=== PATIENT | female | born 1990 | race Caucasian/White ===

== ENCOUNTER 2021-05-26 08:10 | Outpatient (REF) | payer OTHER, SELFPAY ==
[2021-05-29 20:07] LABS: HPV mRNA E6/E7 rflx Not Detected (Not Detected)
== END 2021-05-26 08:11 | disposition home or self-care (01) ==
LOC: HO.LAB 08:10
PROVIDERS: PCP Internal Medicine Medical Oncology; Visit Provider Obstetrics & Gynecology
DX: Z01.411 Encounter for gynecological examination (general) (routine) with abnormal findings (principal); Z11.51 Encounter for screening for human papillomavirus (HPV); N90.89 Other specified noninflammatory disorders of vulva and perineum
CPT/HCPCS: 87624; 88142

== ENCOUNTER 2021-06-23 08:33 | Outpatient (REF) | payer OTHER, SELFPAY | END 2021-06-23 08:34 | disposition home or self-care (01) | LOC: HO.LAB 08:33 | PROVIDERS: PCP Internal Medicine Medical Oncology; Visit Provider Obstetrics & Gynecology | DX: N90.89 Other specified noninflammatory disorders of vulva and perineum (principal); R87.610 Atypical squamous cells of undetermined significance on cytologic smear of cervix (ASC-US) | CPT/HCPCS: 56605; 57454; 88305 ==

== ENCOUNTER → 2021-07-09 11:31 | Outpatient (BNVA) | payer OTHER, SELFPAY | PROVIDERS: Visit Provider Obstetrics & Gynecology ==

== ENCOUNTER 2022-05-31 08:55 | Outpatient (REF) | payer OTHER, SELFPAY ==
[2022-06-02 01:34] LABS: HPV mRNA E6/E7 rflx Not Detected (Not Detected)
== END 2022-05-31 08:56 | disposition home or self-care (01) ==
LOC: HO.LNP 08:55
PROVIDERS: Visit Provider Obstetrics & Gynecology
DX: Z01.419 Encounter for gynecological examination (general) (routine) without abnormal findings (principal); Z11.51 Encounter for screening for human papillomavirus (HPV); R87.610 Atypical squamous cells of undetermined significance on cytologic smear of cervix (ASC-US)
CPT/HCPCS: 87624; 88142

== ENCOUNTER 2022-05-31 08:58 | Outpatient (REF) | payer OTHER, SELFPAY ==
[2022-05-31 09:30] LABS: Hematocrit 39.2 % (37.0-47.0); Hemoglobin 12.8 g/dl (12.0-16.0); Mean Corpuscular HGB Conc 32.7 g/dl (31.0-35.0); Mean Corpuscular Hemoglobin 28.4 pg (27.0-33.0); Mean Corpuscular Volume 87.1 fL (80.0-98.0); Mean Platelet Volume 9.8 fL (9.4-12.3); Platelet Count 286 X10*3/uL (160-400); Red Cell Distribution Width 13.4 % (11.0-16.0); White Blood Count 4.8 X10*3/uL (4.8-10.8)
[2022-05-31 10:45] LABS: HCG Quantitative < 2 mIU/mL; TSH reflex Free T4 2.38 uIU/mL (0.32-4.0)
[2022-05-31 14:07] LABS: CT PCR NOT DETECTED (Not Detect.); NG PCR NOT DETECTED (Not Detect.)
[2022-06-09 14:17] LABS: Testosterone, Free 2.3 pg/mL (0.1-6.4); Testosterone, Total 17 ng/dL (2-45)
== END 2022-05-31 08:59 | disposition home or self-care (01) ==
LOC: HO.LAB 08:58
PROVIDERS: PCP Internal Medicine Medical Oncology; Visit Provider Obstetrics & Gynecology
DX: Z11.3 Encounter for screening for infections with a predominantly sexual mode of transmission (principal); N90.89 Other specified noninflammatory disorders of vulva and perineum; N93.9 Abnormal uterine and vaginal bleeding, unspecified
CPT/HCPCS: 83498; 84402; 84403; 84443; 84702; 85027; 87491; 87591

== ENCOUNTER 2022-06-15 13:35 | Outpatient (REF) | payer OTHER, SELFPAY ==
--- NOTE | ~2022-06-15 | US_ITS ---
EXAMINATION: US PELVIS CLINICAL INFORMATION: Abnormal uterine and vaginal bleeding unspecified. Last menstrual period 06/14/2022. COMPARISON: None. TECHNIQUE: Ultrasound of the pelvis is performed using both transabdominal and transvaginal transducers along with Doppler. Transvaginal imaging is performed due to inadequate visualization transabdominally. FINDINGS: The uterus measures 7.3 x 3.6 x 4.6 cm. No discrete fibroids. Endometrial thickness is 0.5 cm. Nabothian cyst is present. Small amount of free fluid in the pelvis. Bilateral ovaries demonstrate multiple small follicles. Right ovary measures 3.5 x 1.8 x 1.9 cm, volume 6.1 mL. Left ovary measures 2.9 x 1.5 x 3.0 cm, volume 6.8 mL. US/US pelvic and transvaginal IMPRESSION: 1. No discrete fibroids. 2. Endometrial thickness is 0.5 cm. 3. Small amount of free fluid in the pelvis. 4. Bilateral ovaries demonstrate multiple small follicles.
== END 2022-06-15 13:36 | disposition home or self-care (01) ==
LOC: HO.HMGCX 13:35
PROVIDERS: PCP Internal Medicine Medical Oncology; Visit Provider Obstetrics & Gynecology
DX: N93.9 Abnormal uterine and vaginal bleeding, unspecified (principal)
CPT/HCPCS: 76830; 76856

== ENCOUNTER 2022-07-08 10:42 | Outpatient (REF) | payer OTHER, SELFPAY | END 2022-07-08 10:43 | disposition home or self-care (01) | LOC: HO.LNP 10:42 | PROVIDERS: PCP Internal Medicine Medical Oncology; Visit Provider Obstetrics & Gynecology | DX: N93.9 Abnormal uterine and vaginal bleeding, unspecified (principal); R22.9 Localized swelling, mass and lump, unspecified | CPT/HCPCS: 58100; 88305 ==

== ENCOUNTER → 2022-07-26 14:55 | Outpatient (BNVA) | payer OTHER, SELFPAY | PROVIDERS: Visit Provider Obstetrics & Gynecology | DX: Z13.89 Encounter for screening for other disorder (principal) ==